=== PATIENT | female | born 1990 | race Two or more races ===

== ENCOUNTER 2024-02-21 00:15 | Emergency (ER) | payer OTHER ==
[~2024-02-21] VITALS: Ht 152.4 cm; Wt 91.6 kg
[2024-02-21 00:28] VITALS: BP 134/86; O2SAT 100
[2024-02-21] MEDS ORDERED: METHYLPREDNISOLONE SOD SUCC 125 MG VIAL IV STA (01:15)
[2024-02-21] MEDS ORDERED: GUAIFENESIN 200 MG/10 ML BLIST.PACK PO STA (01:15)
[2024-02-21] MEDS ORDERED: ALBUTEROL SULFATE 3 ML/2.5 MG AMPUL.NEB IH SCH (01:15)
[2024-02-21] MEDS ORDERED: METHYLPREDNISOLONE SOD SUCC 125 MG VIAL ONE (01:19)
[2024-02-21] MEDS ORDERED: GUAIFENESIN 200 MG/10 ML BLIST.PACK PO ONE (01:19)
[2024-02-21] MEDS ORDERED: ALBUTEROL SULFATE 3 ML/2.5 MG AMPUL.NEB IH ONE ×2 (01:43→02:13)
[2024-02-21] MEDS ORDERED: VENTOLIN HFA18 GM IH (03:29)
[2024-02-21] MEDS ORDERED: ALBUTEROL2.5 MG/3 M IH (03:29)
[2024-02-21] MEDS ORDERED: MEDROL8 MG PO (03:34)
== END 2024-02-21 03:40 | disposition home or self-care (01) ==
LOC: ER 00:15
DX: J98.01 Acute bronchospasm (principal)